=== PATIENT | male | born 1980 | race Caucasian/White ===

== ENCOUNTER 2017-06-26 16:23 | Emergency (ER) ==
[2017-06-26 16:31] VITALS: BP 127/87; TEMP 97.5; BMI 27.6
--- NOTE | 2017-06-26 16:44 | ED.PDOC ---
General ED Provider: Dr. TIMOTHY ARAIZA Chief Complaint: Non-specific Complaint Stated Complaint: testicular nodule Time Seen by Physician: 16:30 Mode of Arrival: Walk-In Information Source: Patient Exam Limitations: No limitations Nursing and Triage Documentation Reviewed and Agree: Yes Complaint Exam - Complaint/Exam Patient Complains of: Reports: Scrotal pain Onset/Duration: 30 days Symptoms Are: Still present Timing: Constant Initial Severity: Mild Current Severity: Mild Location of Pain: Reports: Testicle Character: Reports: Dull Aggravating: Reports: None Alleviating: Reports: None Associated Signs and Symptoms: Reports: Scrotal pain. Denies: Diaphoresis, Back pain, Fever, Hematuria, Dysuria, Constipation, Blood in stool, Rectal pain , Appetite change, Nausea, Vomiting, Penile swelling, Penile discharge, Decreased urine output, Increased urine frequency, Increased thirst, Decreased activity, Lethargy, Scrotal swelling, Abdominal Pain Related History: Reports: Similar episode Testicular Torsion Risk Factors: Reports: None Surgical Obstruction Risk Factors: Reports: None Related Surgical History: Reports: None Abdominal Findings: Present: None Genitalia Exam: Present: Normal findings (possible nodule left testicle) Review of Systems - Review Of Systems Constitutional: Reports: No symptoms Eyes: Reports: No symptoms Ears, Nose, Mouth, Throat: Reports: No symptoms Respiratory: Reports: No symptoms Cardiac: Reports: No symptoms GI: Reports: No symptoms : Reports: Pain (testicle) Musculoskeletal: Reports: No symptoms Skin: Reports: No symptoms Neurological: Reports: No symptoms Endocrine: Reports: No symptoms Hematologic/Lymphatic: Reports: No symptoms All Other Systems: Reviewed and Negative Past Medical History - Past Medical History Previously Healthy: Yes Endocrine: Reports: None Cardiovascular: Reports: None Respiratory: Reports: None Hematological: Reports: None Gastrointestinal: Reports: None Genitourinary: Reports: None Neuro/Psych: Reports: None Musculoskeletal: Reports: None Cancer: Reports: None - Surgical History General Surgical History: Reports: None - Family History Family History: Reports: None - Social History Smoking Status: Current every day smoker Hx Substance Use: No Alcohol Screening: None Physical Exam - Physical Exam Appearance: Well-appearing, No pain distress, Well-nourished Eyes: KADE, EOMI, Conjunctiva clear ENT: Ears normal, Nose normal, Oropharynx normal Respiratory: Airway patent, Breath sounds clear, Breath sounds equal, Respirations nonlabored Cardiovascular: RRR, Pulses normal, No rub, No murmur GI/: Tender (left testicle sctrotal nodule noted ) Musculoskeletal: Normal strength, ROM intact, No edema, No calf tenderness Skin: Warm, Dry, Normal color Neurological: Sensation intact, Motor intact, Reflexes intact, Cranial nerves intact, Alert, Oriented Psychiatric: Affect appropriate, Mood appropriate Critical Care Note - Critical Care Note Total Time (mins): 0 Course - Course Vital Signs: Temp Pulse Resp BP Pulse Ox 06/26/17 16:24 97.5 F L 123 H 16 127/87 97 Departure - Departure Time of Disposition: 16:45 Disposition: HOME SELF-CARE Discharge Problem: Nodule of testis Instructions: Scrotal Pain (ED), Testicular Self-examination (ED), Testicle Pain (ED) Condition: Good Pt referred to PMD for follow-up: Yes Additional Instructions: Please call your Family Physician as soon as possible to schedule a follow-up appointment. must return for ultra sound on thursday Please call your Family Physician as soon as possible to schedule a follow-up appointment. is you fail to show up possible cance will not be diagnosed Allergies/Adverse Reactions: Allergies No Known Allergies Allergy (Unverified 06/26/17 16:30) Home Medications: Ambulatory Orders 1 [No Reported Medications] 06/26/17
== END 2017-06-26 16:58 | disposition home or self-care (01) ==
LOC: ED 16:23
DX: N50.9 Disorder of male genital organs, unspecified (principal); N50.82 Scrotal pain; F17.210 Nicotine dependence, cigarettes, uncomplicated
CPT/HCPCS: 99282

== ENCOUNTER 2017-06-29 12:00 | Emergency (ER) ==
[2017-06-29 12:00] VITALS: BMI 27.6
[2017-06-29 12:04] VITALS: BP 135/80; TEMP 96.8
[2017-06-29 12:47] LABS: BASOPHILS % (AUTO) 0.5 % (0.0-3.0); EOSINOPHILS % (AUTO) 0.5 % (0.0-7.0); HEMATOCRIT 44.5 % (42.0-52.0); HEMOGLOBIN 16.3 g/dl (14.0-18.0); IMMATURE GRANULOCYTE % (AUTO) 0.3 % (0.0-5.0); LYMPHOCYTES # (AUTO) 2.1 K/uL (0.60-3.4); LYMPHOCYTES % (AUTO) 32.5 (10.0-50.0); MEAN CORPUSCULAR HEMOGLOBIN 31.9 pg (27.0-31.0); MEAN CORPUSCULAR HGB CONC 36.6 (31.8-35.4); MEAN CORPUSCULAR VOLUME 87.1 fl (80.0-94.0); MONOCYTES # (AUTO) 0.3 K/uL (0.4-2.0); MONOCYTES % (AUTO) 5.3 (0-10); NEUTROPHILS % (AUTO) 60.9; PLATELET COUNT 403 10^3/uL (140-440); RED BLOOD COUNT 5.11 10^6/ul (4.70-6.10); WHITE BLOOD COUNT 6.47 K/ul (4.2-10.2)
--- NOTE | 2017-06-29 12:55 | CT ---
EXAM: CT Abdomen without contrast. CT Pelvis without contrast. HISTORY: Low back pain radiating to the scrotum. COMPARISON: None available. TECHNIQUE: Multiple axial images of the abdomen and pelvis were obtained without intravenous contras t. Images were reformatted in the coronal plane. FINDINGS: Please note that evaluation of the abdominal and pelvic structures is limited due to lack of intravenous contrast. The lung bases are clear. No acute osseous abnormality identified. The liver, gallbladder, pancreas, spleen, adrenal glands demonstrate normal contour. No calcified re nal stones, hydronephrosis or perinephric inflammation detected. The bowel is normal in course and caliber without evidence for obstruction or inflammatory process. The appendix is normal. Urinary bladder is unremarkable. No free fluid or free air identified. Mil d atherosclerotic calcifications are present. Tiny fat-containing umbilical hernia is identified. IMPRESSION: No evidence for obstructive uropathy or other acute abnormality in the abdomen or pelvis.
--- NOTE | 2017-06-29 12:55 | US ---
EXAM: Scrotal ultrasound HISTORY: Pain 1 month COMPARISON: None TECHNIQUE: Scrotal ultrasound was performed FINDINGS: Right: Right testicle measures 2.3 x 3.4 x 4.2 cm. Right testicle normal in echogenicity and vascul arity. There is a cyst in the right epididymal head measuring 1.0 cm. Right epididymis otherwise ap pears normal. Trace right hydrocele. No right varicocele. Left: Left testicle measures 1.9 x 3.3 x 3.3 cm. Left testicle normal in echogenicity and vascular ity. Left epididymis appears normal. Trace left hydrocele. No left varicocele. IMPRESSION: 1. Normal appearance right and left testicle. 2. Small right epididymal head cyst. Otherwise normal appearance right and left epididymis. 3. Trace bilateral hydrocele.
[2017-06-29 13:06] LABS: ALBUMIN 4.6 g/dL (3.4-5.0); ALBUMIN/GLOBULIN RATIO 1.21; BILIRUBIN,TOTAL 2.05 mg/dL (0.00-1.20); BUN/CREATININE RATIO 16.66; CREATININE 0.9 mg/dL (0.60-1.10); TOTAL PROTEIN 8.4 g/dL (6.4-8.2)
[2017-06-29 13:16] LABS: BILIRUBIN,URINE 1+ (NEGATIVE); KETONES,URINE Trace (NEGATIVE); LEUKOCYTE ESTERASE ,URINE Negative (NEGATIVE); NITRITE,URINE Negative (NEGATIVE); PH,URINE 6.5 (5-9); PROTEIN,URINE 1+ (NEGATIVE); URINE, BLOOD Negative (NEGATIVE)
[2017-06-29 13:20] LABS: ADD URINE MICROSCOPIC YES; SPERM,URINE 1+ (NOT PRESENT)
--- NOTE | 2017-06-29 13:41 | ED.PDOC ---
General ED Provider: Dr. TIMOTHY ARAIZA Chief Complaint: Scrotal Pain Stated Complaint: back pain scrotal pain Time Seen by Physician: 12:00 Mode of Arrival: Walk-In Information Source: Patient Exam Limitations: No limitations Primary Care Provider: WILFREDO CASAS Nursing and Triage Documentation Reviewed and Agree: Yes Musculoskeletal Complaint Exam - Back Pain Complaint/Exam Mechanism of Injury: Reports: No known trauma Onset/Duration: 2 weeks Symptoms Are: Still present Timing: Intermittent Episodes Lasting: Hours Initial Severity: Moderate Current Severity: Mild Location: Reports: Discrete Character: Reports: Aching Aggravating: Reports: Movements, Lifting, Bending, Walking, Cough Alleviating: Reports: Rest, Position Associated Signs and Symptoms: Denies: Swelling, Redness, Bruising, Fever, Weakness, Numbness, Tingling, Abdominal pain, Flank pain, Bladder incontinence, Bowel incontinence, Weight loss, Pain with weight bearing Related History: Reports: Similar episode TAD Risk Factors: Reports: None AAA Risk Factors: Reports: Atherosclerosis Epidural Abcess Risk Factors: Reports: None Related Surgical History: Reports: None Focal Tenderness: No Paraspinal Muscle Tenderness: No Paraspinal Muscle Spasm: No Scoliosis: No Lordosis: No Kyphosis: No SLR Test: Right Negative, Left Negative Hip Motion Testing Pain: Right Negative, Left Negative Focal Weakness: Present: None Focal Sensory Loss: Present: None Gait: Present: Normal Differential Diagnoses: Renal Colic, Other (testiculat mas) Review of Systems - Review Of Systems Constitutional: Reports: No symptoms Eyes: Reports: No symptoms Ears, Nose, Mouth, Throat: Reports: No symptoms Respiratory: Reports: No symptoms Cardiac: Reports: No symptoms GI: Reports: No symptoms : Reports: Flank pain Musculoskeletal: Reports: Back pain Skin: Reports: No symptoms Neurological: Reports: No symptoms Endocrine: Reports: No symptoms Hematologic/Lymphatic: Reports: No symptoms All Other Systems: Reviewed and Negative Past Medical History - Past Medical History Previously Healthy: Yes Endocrine: Reports: None Cardiovascular: Reports: None Respiratory: Reports: None Hematological: Reports: None Gastrointestinal: Reports: None Genitourinary: Reports: None Neuro/Psych: Reports: None Musculoskeletal: Reports: None Cancer: Reports: None - Surgical History General Surgical History: Reports: None - Family History Family History: Reports: None - Social History Smoking Status: Current every day smoker Hx Substance Use: No Alcohol Screening: None Physical Exam - Physical Exam Appearance: Well-appearing, No pain distress, Well-nourished Eyes: KADE, EOMI, Conjunctiva clear ENT: Ears normal, Nose normal, Oropharynx normal Respiratory: Airway patent, Breath sounds clear, Breath sounds equal, Respirations nonlabored Cardiovascular: RRR, Pulses normal, No rub, No murmur GI/: Soft, Nontender, No masses, Bowel sounds normal, No Organomegaly Musculoskeletal: Normal strength, ROM intact, No edema, No calf tenderness Skin: Warm, Dry, Normal color Neurological: Sensation intact, Motor intact, Reflexes intact, Cranial nerves intact, Alert, Oriented Psychiatric: Affect appropriate, Mood appropriate Interpretation - Radiology Interpretation Radiology Interpretation By: Radiologist Critical Care Note - Critical Care Note Total Time (mins): 0 Course - Course Hematology/Chemistry: 06/29/17 12:40 06/29/17 12:40 Orders, Labs, Meds: Lab Review 06/29/17 06/29/17 06/29/17 12:40 12:40 12:40 WBC 6.47 RBC 5.11 Hgb 16.3 Hct 44.5 MCV 87.1 MCH 31.9 H MCHC 36.6 H RDW Coeff of Ricky 12.0 Plt Count 403 Immature Gran % (Auto) 0.3 Neut % (Auto) 60.9 Lymph % (Auto) 32.5 [place] % (Auto) 5.3 Eos % (Auto) 0.5 Baso % (Auto) 0.5 Immature Gran # (Auto) 0.0 Neut # 4.0 Lymph # 2.1 [place] # 0.3 L Eos # 0.0 Baso # 0.0 Sodium 138 Potassium 4.0 Chloride 100 Carbon Dioxide 29 Anion Gap 13.0 BUN 15 Creatinine 0.90 Estimated GFR (MDRD) 96.00 BUN/Creatinine Ratio 16.66 Glucose 97 Lactic Acid 8.7 Calcium 10.0 Total Bilirubin 2.05 H AST 18 ALT 19 Alkaline Phosphatase 66 Total Protein 8.4 H Albumin 4.6 Globulin 3.8 Albumin/Globulin Ratio 1.21 Procalcitonin Urine Color Urine Clarity Urine pH Ur Specific [place] Urine Protein Urine Glucose (UA) Urine Ketones Urine Blood Urine Nitrite Urine Bilirubin Urine Urobilinogen Ur Leukocyte Esterase Urine Microscopic WBC Ur Squamous Epith Cells Urine Mucus Urine Sperm 06/29/17 06/29/17 12:40 12:55 WBC RBC Hgb Hct MCV MCH MCHC RDW Coeff of Ricky Plt Count Immature Gran % (Auto) Neut % (Auto) Lymph % (Auto) [place] % (Auto) Eos % (Auto) Baso % (Auto) Immature Gran # (Auto) Neut # Lymph # [place] # Eos # Baso # Sodium Potassium Chloride Carbon Dioxide Anion Gap BUN Creatinine Estimated GFR (MDRD) BUN/Creatinine Ratio Glucose Lactic Acid Calcium Total Bilirubin AST ALT Alkaline Phosphatase Total Protein Albumin Globulin Albumin/Globulin Ratio Procalcitonin < 0.05 Urine Color Yellow Urine Clarity Clear Urine pH 6.5 Ur Specific [place] 1.025 Urine Protein 1+ Urine Glucose (UA) Negative Urine Ketones Trace Urine Blood Negative Urine Nitrite Negative Urine Bilirubin 1+ Urine Urobilinogen 1.0 Ur Leukocyte Esterase Negative Urine Microscopic WBC 0-2 Ur Squamous Epith Cells Not present Urine Mucus 2+ Urine Sperm 1+ Orders Category Date Time Status BLOOD CULTURE (ED ONLY) Stat LAB 06/29/17 12:40 Received CBC W/ AUTO DIFF Stat LAB 06/29/17 12:40 Completed COMPREHENSIVE METABOLIC PANEL Stat LAB 06/29/17 12:40 Completed LACTIC ACID Stat LAB 06/29/17 12:40 Completed PROCALCITONIN Stat LAB 06/29/17 12:40 Completed URINALYSIS C & S IF INDICATED Stat LAB 06/29/17 12:[address] ABDOMEN/PELVIS WO CONTRAST Stat RADS 06/29/17 12:09 Completed ULTRASOUND SCROTUM [U/S SCROTUM] Stat RADS 06/29/17 12:09 Completed Vital Signs: Temp Pulse Resp BP Pulse Ox 06/29/17 12:01 96.8 F L 113 H 20 135/80 97 Departure - Departure Time of Disposition: 13:41 Disposition: HOME SELF-CARE Discharge Problem: Back pain Qualifiers: Back pain location: low back pain Back pain laterality: unspecified Instructions: Back Pain (ED) Condition: Good Pt referred to PMD for follow-up: Yes Additional Instructions: Please call your Family Physician as soon as possible to schedule a follow-up appointment. Allergies/Adverse Reactions: Allergies No Known Allergies Allergy (Verified 06/29/17 12:04) Home Medications: Ambulatory Orders 1 [No Reported Medications] 06/26/17 Disposition Discussed With: Patient
== END 2017-06-29 13:48 | disposition home or self-care (01) ==
LOC: ED 12:00
DX: M54.5 Low back pain (principal); N50.82 Scrotal pain; F17.210 Nicotine dependence, cigarettes, uncomplicated
CPT/HCPCS: 36415; 80053; 81001; 83605; 84145; 85025; 87040; 99283